=== PATIENT | male | born 1935 | race Caucasian/White ===

== ENCOUNTER 2018-04-20 17:30 | Emergency (ER) | payer MEDICARE, BC ==
[2018-04-20] MEDS ORDERED: SODIUM CHLORIDE 0.9% FLUSH 10 ML SOL IV PRN (17:35)
[2018-04-20 17:56] LABS: BASOPHILS % (AUTO) 1 % (0-3); EOSINOPHILS % (AUTO) 1 % (0-9); HEMATOCRIT 38 % (39-53); HEMOGLOBIN 12.8 gm/dl (13.5-17.7); LYMPHOCYTES % (AUTO) 29.8 % (10-50); MEAN CORPUSCULAR HEMOGLOBIN 29.1 pg (27.0-32.0); MEAN CORPUSCULAR HGB CONC 33.9 gm/dl (32.0-36.0); MEAN CORPUSCULAR VOLUME 86 fL (80-100); MONOCYTES % (AUTO) 29.3 % (0-12); NEUTROPHILS % (AUTO) 39.1 % (37-80)
[2018-04-20 18:00] LABS: LACTIC ACID 1.3 mMol/L (0.0-2.0)
[2018-04-20 18:06] LABS: INR 0.93 (0.86-1.12)
[2018-04-20 18:15] LABS: CALCIUM 8.5 mg/dl (8.5-10.1); CARBON DIOXIDE 26.3 mEq/L (21-32); CREATININE 0.76 mg/dl (0.80-1.30); POTASSIUM 3.7 mMol/L (3.5-5.1); TROP I 1.333 ng/ml (0.000-0.056)
[2018-04-20] MEDS ORDERED: ASPIRIN 81 MG CHEWABLE CTB PO ONE (18:30)
[2018-04-20] MEDS ORDERED: ASPIRIN 81 MG CHEWABLE CTB ONE (18:31)
[2018-04-20] MEDS ORDERED: NITROGLYCERIN 0.4 MG TAB SL ONE (18:43)
[2018-04-20] MEDS ORDERED: NITROGLYCERIN 0.4 MG TAB SL PRN (18:45)
[2018-04-20] MEDS ORDERED: HEPARIN SODIUM 5000 U/ML SOL IV ONE (18:51)
[2018-04-20] MEDS ORDERED: HEPARIN SODIUM 5000 U/ML SOL ONE ×2 (18:56)
[2018-04-20] MEDS ORDERED: HEPARIN PREMIX 25,000 U/250 ML SOL IV SCH (19:00)
[2018-04-20 19:01] VITALS: TEMP 98.6
[2018-04-20 19:29] VITALS: BP 145/75; PULSE 78; RESP 20; O2SAT 97
== END 2018-04-20 19:45 | disposition short-term general hospital (02) | DRG 282 ==
LOC: ED 17:30
DX: I21.4 Non-ST elevation (NSTEMI) myocardial infarction (principal); R10.13 Epigastric pain; R07.89 Other chest pain; E11.9 Type 2 diabetes mellitus without complications; I10 Essential (primary) hypertension; E78.5 Hyperlipidemia, unspecified; I45.19 Other right bundle-branch block
CPT/HCPCS: 74022; 80048; 82550; 84484; 85025; 85610; 85730; 93005; 96365; 96374; 99285; 99291; J1644; A9270-GY